=== PATIENT | male | born 1955 | race African-American/Black ===

== ENCOUNTER → 2016-09-26 | Outpatient (CLI) | payer OTHER ==
[~2016-09-26] MED LIST: BENICAR40 MG PO; CARVEDILOL25 MG PO; CLONIDINE PO; COUMADIN PO; FINASTERIDE PO; GLUCOSAMINE &1 EAC1 PO; HYDROXYCHLOROQ200 M1 PO; KLOR-CON 10 ER10 MEQ PO; LASIX 40 MG TAB40 MG PO; PREDNISONE 2.52.5 M1 PO
== END ==
LOC: RAD 12:21
DX: R06.02 Shortness of breath (principal)

== ENCOUNTER → 2017-10-20 | Outpatient (CLI) | payer OTHER | LOC: RAD 11:59 | DX: R06.00 Dyspnea, unspecified (principal) ==